=== PATIENT | male | born 1985 | race Two or more races ===

== ENCOUNTER 2023-10-06 12:35 | Emergency (ER) | payer BC ==
[~2023-10-06] VITALS: Ht 175.3 cm; Wt 63.5 kg
== END 2023-10-06 15:53 | disposition home or self-care (01) ==
LOC: ER 12:36
DX: S90.111A Contusion of right great toe without damage to nail, initial encounter (principal); X58.XXXA Exposure to other specified factors, initial encounter; Y93.89 Activity, other specified; Y92.89 Other specified places as the place of occurrence of the external cause; Y99.9 Unspecified external cause status